=== PATIENT | male | born 1990 | race African-American/Black ===

== ENCOUNTER 2016-10-19 19:05 | Emergency (ER) | payer SELFPAY | END 2016-10-19 20:55 | disposition home or self-care (01) | LOC: D.ER 19:05 | DX: S01.81XA Laceration without foreign body of other part of head, initial encounter (principal); W20.8XXA Other cause of strike by thrown, projected or falling object, initial encounter; Y93.89 Activity, other specified; Y92.89 Other specified places as the place of occurrence of the external cause ==

== ENCOUNTER 2016-10-21 11:17 | Emergency (ER) | payer OTHER | END 2016-10-21 13:05 | disposition home or self-care (01) | LOC: D.ER 11:17 | DX: R51 Headache (principal); R11.0 Nausea; F17.200 Nicotine dependence, unspecified, uncomplicated ==

== ENCOUNTER 2016-10-29 08:48 | Emergency (ER) | payer OTHER | END 2016-10-29 11:00 | disposition left against medical advice (07) | LOC: D.ER 08:48 | DX: S01.81XD Laceration without foreign body of other part of head, subsequent encounter (principal); X58.XXXD Exposure to other specified factors, subsequent encounter; Y92.89 Other specified places as the place of occurrence of the external cause ==